=== PATIENT | female | born 1995 | race Hispanic/Latino ===

== ENCOUNTER 2016-07-30 09:01 | Inpatient (IN) | payer MEDICAID ==
[~2016-07-30] VITALS: Ht 124.5 cm; Wt 74.0 kg
[~2016-07-30 09:01] MED LIST: AMOXICILLIN500 MG OR; BENTYL10 MG OR; CIPRO500 MG OR; GLYBURIDE2.5 M1 PO; IBUPROFEN600 MG PO; NAPROSYN500 MG OR; NO HOME MEDS; NORCO1 TA1 PO; PRE-NATAL PO; PREVACID15 M1 OR; PROMETHAZINE25 MG PO; SEASONALE OR; TAM75CAP OR; TRAMADOL HCL50 MG PO; TYLENOL 500MG TAB PO
[2016-08-01] VITALS (14 sets, daily range): BP systolic 105–143; BP diastolic 43–80
[2016-08-01 01:49] LABS: HEMATOCRIT 31.3 % (37.0-47.0); IMMATURE GRANULOCYTES 1.2 % (0.0-1.0); MEAN CELL VOLUME 80.3 fL CALC (80.0-100.0); MEAN CORPUSCULAR HGB 25.6 pG CALC (26.0-32.0); MEAN CORPUSCULAR HGB CONC 31.9 g/L CALC (32.0-36.0); NEUT# 7.17 thou/uL (2.00-7.15); RED BLOOD COUNT 3.9 mill/uL (4.20-5.60); RED CELL DISTRI WIDTH 15.6 % (11.5-15.5)
[2016-08-01 01:55] LABS: BARBITURATES NEGATIVE (NEGATIVE); COCAINE NEGATIVE (NEGATIVE); METHADONE NEGATIVE (NEGATIVE); OXCYCODONE NEGATIVE (NEGATIVE); TETRAHYDROCANNABIONOL NEGATIVE (NEGATIVE); TRICYLIC ANTIDEPRESSANTS NEGATIVE (NEGATIVE)
[2016-08-02 00:20] VITALS: BP 107/64
[2016-08-02 04:10] VITALS: BP 111/71
[2016-08-02 05:41] LABS: HEMATOCRIT 26.4 % (37.0-47.0); HEMOGLOBIN 8.5 g/dl (12.0-16.0); IMMATURE GRANULOCYTES 0.9 % (0.0-1.0); MEAN CELL VOLUME 80.7 fL CALC (80.0-100.0); MEAN CORPUSCULAR HGB CONC 32.2 g/L CALC (32.0-36.0); NEUT# 9.18 thou/uL (2.00-7.15); RED BLOOD COUNT 3.27 mill/uL (4.20-5.60); RED CELL DISTRI WIDTH 15.2 % (11.5-15.5)
[2016-08-02 08:30] VITALS: BP 120/71
[2016-08-02 16:05] VITALS: BP 120/71
[2016-08-02 19:26] VITALS: BP 112/60
[2016-08-03 05:00] VITALS: BP 112/67
[2016-08-03 07:00] VITALS: BP 122/73
[2016-08-03] MEDS ORDERED: LORTAB 7.57.5 MG PO (09:58)
[2016-08-03] MEDS ORDERED: GLYBURIDE2.5 M1 PO (09:58)
[2016-08-03] MEDS ORDERED: IBUPROFEN600 MG PO (09:59)
== END 2016-08-03 12:05 | disposition home or self-care (01) | DRG 766 ==
LOC: OB 08-01 00:37
PROVIDERS: ADMIT Obstetrics & Gynecology; ATTEND Obstetrics & Gynecology
PROC: 10D00Z1 Extraction of Products of Conception, Low, Open Approach (ICD-10-PCS; principal; 2016-08-01)
PROC: 0UB20ZZ Excision of Bilateral Ovaries, Open Approach (ICD-10-PCS; 2016-08-01)
DX: O34.211 Maternal care for low transverse scar from previous cesarean delivery (principal); O24.425 Gestational diabetes mellitus in childbirth, controlled by oral hypoglycemic drugs; D27.0 Benign neoplasm of right ovary; N85.8 Other specified noninflammatory disorders of uterus; O34.83 Maternal care for other abnormalities of pelvic organs, third trimester; D27.1 Benign neoplasm of left ovary; Z3A.39 39 weeks gestation of pregnancy; Z37.0 Single live birth
CPT/HCPCS: J2270

== ENCOUNTER 2022-05-25 10:52 | Emergency (ER) | payer OTHER ==
[~2022-05-25] VITALS: Ht 124.5 cm; Wt 58.9 kg
[~2022-05-25 10:52] MED LIST changes: +LORTAB 7.57.5 MG PO
[2022-05-25 12:02] LABS: BASO% 0.2 % (0-3); EOS% 2.6 % (0-8); IMMATURE GRANULOCYTES 0.2 % (0.0-5.0); LYMPH% 37.3 % (15-41); MEAN CORPUSCULAR HGB 30.5 pG CALC (26.0-32.0); MEAN CORPUSCULAR HGB CONC 34.4 g/dL CAL (32.0-36.0); NEUT# 5.35 thou/uL (2.00-7.15); NEUT% 52.7 % (42-76); RED BLOOD COUNT 3.93 mill/uL (4.20-5.60); RED CELL DISTRI WIDTH 12.1 % (11.5-15.5)
[2022-05-25 12:09] LABS: ALBUMIN 4.6 g/dL (3.2-5.0); ALKALINE PHOSPHATASE 70 u/l (38-126); ANION GAP 15 (6-22 (CALC)); BUN 19 mg/dL (7-17); BUN/CREATININE RATIO 29 (12-20 (CALC)); CARBON DIOXIDE 20 mmol/l (22-30); CHLORIDE 105 mmol/l (95-108); CREATININE 0.6 mg/dL (0.5-1.0); GFR FOR AFR.AMER. > 60 ML/MIN (>=60 (CALC)); GFR OTHER RACES > 60 ML/MIN (>=60 (CALC)); HEMATOCRIT 34.9 % (37.0-47.0); MEAN CELL VOLUME 88.8 fL CALC (80.0-100.0); POTASSIUM 4.1 mmol/l (3.5-5.1); SGOT/AST 33 u/l (14-36); SODIUM 136 mmol/l (137-146); TOTAL PROTEIN 8.1 g/dL (6.3-8.2)
[2022-05-25 14:01] LABS: URINE BILIRUBIN - DIPSTICK NEGATIVE (NEGATIVE); URINE BLOOD DIPSTICK TRACE-INTACT (NEGATIVE); URINE COLOR YELLOW; URINE GLUCOSE - DIPSTICK NEGATIVE (NEGATIVE); URINE KETONE NEGATIVE (NEGATIVE); URINE PROTEIN - DIPSTICK NEGATIVE (NEG-TRACE); URINE UROBILINOGEN - DIPSTICK 0.2 E.U./dL (0.2)
[2022-05-25 14:04] LABS: URINE LEUK ESTERASE SMALL (NEGATIVE); URINE NITRITE - DIPSTICK NEGATIVE (Negative)
[2022-05-25 14:15] LABS: URINE RBC 0-2 RBC/hpf (0-5)
[2022-05-25] MEDS ORDERED: OMNI-PAC300 MG PO (15:19)
[2022-05-25 15:28] VITALS: BP 129/80
== END 2022-05-25 16:08 | disposition home or self-care (01) | DRG 690 ==
LOC: ED 10:52
PROVIDERS: Family Medicine
DX: N39.0 Urinary tract infection, site not specified (principal); R10.9 Unspecified abdominal pain
CPT/HCPCS: Q9967